=== PATIENT | male | born 1940 | race Asian ===

== ENCOUNTER 2017-08-16 14:04 | Inpatient (IN) | payer OTHER ==
[2017-08-16 14:33] LABS: ADD MAN DIFF? NO
[2017-08-16] MEDS: NITROGLYCERIN (SL) 0.4 MG TAB SL (14:34)
[2017-08-16] MEDS: FUROSEMIDE 40 MG INJ IV (14:34)
[2017-08-16 14:36] LABS: WHITE BLOOD COUNT 7.3 10^3/ul (4.8-10.8)
[2017-08-16 14:36] LABS: BASOPHIL # 0.1 10^3/ul (0.0-0.1); BASOPHILS % 1.4 % (0.0-2.0); EOSINOPHILS # 0.5 10^3/ul (0.0-0.5); EOSINOPHILS % 7.3 % (0.0-7.0); HEMATOCRIT 40.1 % (42.0-52.0); HEMOGLOBIN 13.4 g/dl (14.0-18.0); LYMPHOCYTES # 1.3 10^3/ul (0.8-2.9); LYMPHOCYTES % 18.1 % (15.0-51.0); MEAN CORPUSCULAR HEMOGLOBIN 28.6 pg (29.0-33.0); MEAN CORPUSCULAR HGB CONC 33.4 g/dl (32.0-37.0); MEAN CORPUSCULAR VOLUME 85.7 fl (82.0-101.0); MEAN PLATELET VOLUME 9.2 fl (7.4-10.4); MONOCYTE # 0.7 10^3/ul (0.3-0.9); MONOCYTES % 9.2 % (0.0-11.0); NEUTROPHIL # 4.6 10^3/ul (1.6-7.5); NEUTROPHILS % 63.6 % (39.0-77.0); PLATELET COUNT 337 10^3/UL (140-415); RED BLOOD COUNT 4.68 10^6/ul (4.70-6.10); RED CELL DISTRIBUTION WIDTH 13.1 % (11.5-14.5)
[2017-08-16] MEDS: ENALAPRILAT 1.25 MG INJ IV (14:38)
[2017-08-16 15:25] LABS: ALANINE AMINOTRANSFERASE 25 IU/L (13-69); ALBUMIN 4.3 g/dl (3.3-4.9); ALBUMIN/GLOBULIN RATIO 1.34; ALKALINE PHOSPHATASE 64 IU/L (42-121); ANION GAP 18 (8-16); ASPARTATE AMINO TRANSFERASE 21 IU/L (15-46); BILIRUBIN,INDIRECT 0.2 mg/dl (0-1.1); BILIRUBIN,TOTAL 0.2 mg/dl (0.2-1.3); BLOOD UREA NITROGEN 19 mg/dl (7-20); CARBON DIOXIDE 24 mmol/L (21-31); CHLORIDE 100 mmol/L (97-110); CREATININE 1.22 mg/dl (0.61-1.24); GLUCOSE 104 mg/dl (70-220); LIPASE 121 U/L (23-300); SODIUM 138 mmol/L (135-144); TOTAL PROTEIN 7.5 g/dl (6.1-8.1)
[2017-08-16 15:36] LABS: TROPONIN-I < 0.012 ng/ml (0.00-0.12)
[2017-08-16 16:24] LABS: INR 0.89; PROTIME 12.1 Sec (11.9-14.9); PT RATIO 0.9
[2017-08-16 16:25] LABS: PARTIAL THROMBOPLASTIN TIME 33.7 Sec (25.0-35.0)
[2017-08-16] MEDS ORDERED: ALBUTEROL/IPRATROPIUM (NEB) 3 ML AMP HHN (16:30)
[2017-08-16] MEDS ORDERED: ACETAMINOPHEN 325 MG TAB PO (16:30)
[2017-08-16] MEDS ORDERED: NACL 0.9% 3 ML SYG IV (16:30)
[2017-08-16] MEDS ORDERED: MAGNESIUM HYDROXIDE 30ML CUP PO (16:30)
[2017-08-16] MEDS ORDERED: DOCUSATE SODIUM 100 MG CAP PO (16:30)
[2017-08-16] MEDS ORDERED: NITROGLYCERIN (SL) 0.4 MG TAB SL (16:30)
[2017-08-16] MEDS ORDERED: hydrALAzine 20 MG INJ IV (16:30)
[2017-08-16] MEDS ORDERED: LORAZEPAM 2 MG INJ IV (16:30)
[2017-08-16] MEDS ORDERED: morphine 2 MG INJ IV (16:30)
[2017-08-16] MEDS ORDERED: ONDANSETRON 4 MG INJ IV (16:30)
[2017-08-16] MEDS ORDERED: NA PHOSPHATE/BIPHOS 133 ML ENEMA PR (16:30)
[2017-08-16] MEDS ORDERED: HYDROCODONE/APAP (5/325) TAB PO (16:30)
[2017-08-16 16:47] LABS: B-TYPE NATRIURETIC PEPTIDE 1700 PG/ML (0-125)
[2017-08-16 16:55] LABS: FREE T4 (FREE THYROXINE) 1.28 ng/dl (0.78-2.44)
[2017-08-16 17:56] LABS: CREATINE KINASE 84 IU/L (23-200)
[2017-08-16 18:05] LABS: CK INDEX 1.3; TROPONIN-I 0.021 ng/ml (0.00-0.12)
[2017-08-16] MEDS: FUROSEMIDE 20 MG INJ IV (19:08)
[2017-08-16] MEDS: ATORVASTATIN 80 MG TAB PO (21:38)
[2017-08-16] MEDS: DOCUSATE SODIUM 100 MG CAP PO (21:38)
[2017-08-16] MEDS: HEPARIN 5,000 UNIT/0.5 ML VIAL SC (21:56)
[2017-08-16] MEDS: DOXYCYCLINE 100 MG TAB PO (22:16)
[2017-08-16] MEDS: GEMFIBROZIL 600 MG TAB PO (22:16)
[2017-08-16 23:08] LABS: CREATINE KINASE 60 IU/L (23-200)
[2017-08-16 23:22] LABS: CK INDEX 1.9; CK-MB 1.16 ng/ml (0.0-2.4); TROPONIN-I 0.023 ng/ml (0.00-0.12)
[2017-08-17] MEDS: PANTOPRAZOLE (EC) 40 MG TAB PO (06:00)
[2017-08-17] MEDS: FUROSEMIDE 20 MG INJ IV ×2 (06:01→17:23)
[2017-08-17 08:41] LABS: ADD MAN DIFF? NO
[2017-08-17 08:44] LABS: ABNORMAL IP MESSAGE 1; BASOPHIL # 0.1 10^3/ul (0.0-0.1); BASOPHILS % 1.3 % (0.0-2.0); HEMATOCRIT 37.1 % (42.0-52.0); HEMOGLOBIN 12.5 g/dl (14.0-18.0); LYMPHOCYTES # 1.6 10^3/ul (0.8-2.9); LYMPHOCYTES % 26.5 % (15.0-51.0); MEAN CORPUSCULAR HEMOGLOBIN 29.1 pg (29.0-33.0); MEAN CORPUSCULAR HGB CONC 33.7 g/dl (32.0-37.0); MEAN CORPUSCULAR VOLUME 86.5 fl (82.0-101.0); MEAN PLATELET VOLUME 9.4 fl (7.4-10.4); MONOCYTE # 0.6 10^3/ul (0.3-0.9); MONOCYTES % 9.9 % (0.0-11.0); NEUTROPHIL # 2.8 10^3/ul (1.6-7.5); NEUTROPHILS % 46.4 % (39.0-77.0); PLATELET COUNT 284 10^3/UL (140-415); POSITIVE DIFF @See below; RED BLOOD COUNT 4.29 10^6/ul (4.70-6.10); RED CELL DISTRIBUTION WIDTH 13.3 % (11.5-14.5)
[2017-08-17 08:44] LABS: WHITE BLOOD COUNT 6.1 10^3/ul (4.8-10.8)
[2017-08-17] MEDS: HEPARIN 5,000 UNIT/0.5 ML VIAL SC ×2 (08:50→22:14)
[2017-08-17] MEDS: ASPIRIN (EC) 81 MG TAB PO (08:51)
[2017-08-17] MEDS: DOCUSATE SODIUM 100 MG CAP PO ×2 (08:51→22:04)
[2017-08-17] MEDS: GEMFIBROZIL 600 MG TAB PO ×2 (08:51→17:22)
[2017-08-17] MEDS: DOXYCYCLINE 100 MG TAB PO ×2 (08:51→22:05)
[2017-08-17 08:52] LABS: EOSINOPHILS % 15.6 % (0.0-7.0)
[2017-08-17 09:08] LABS: CHOL/HDL RATIO 3.5 RATIO; HDL CHOLESTEROL 44 mg/dl (31-75); LDL CHOLESTEROL,CALCULATED 75 mg/dl; TRIGLYCERIDES 178 mg/dl (0-149)
[2017-08-17 09:08] LABS: CHOLESTEROL 155 mg/dl (100-200)
[2017-08-17 09:11] LABS: ANION GAP 20 (8-16); BLOOD UREA NITROGEN 27 mg/dl (7-20); CALCIUM 8.9 mg/dl (8.4-10.2); CARBON DIOXIDE 26 mmol/L (21-31); CHLORIDE 101 mmol/L (97-110); CREATININE 1.68 mg/dl (0.61-1.24); GLUCOSE 104 mg/dl (70-220); MAGNESIUM 1.9 mg/dl (1.7-2.5); PHOSPHORUS 4.7 mg/dl (2.5-4.9); POTASSIUM 3.9 mmol/L (3.5-5.1); SODIUM 143 mmol/L (135-144)
[2017-08-17 09:38] LABS: THYROID STIMULATING HORMONE 0.925 MIU/L (0.465-4.680)
[2017-08-17 10:04] LABS: HEMOGLOBIN A1C 6.4 % (0-5.9)
[2017-08-17] MEDS: GUAIFENESIN 20 MG/ML 5ML CUP PO ×2 (15:46→22:05)
[2017-08-17] MEDS ORDERED: CEPASTAT LOZENGE MT (16:00)
[2017-08-17] MEDS: ATORVASTATIN 80 MG TAB PO (22:05)
[2017-08-18] MEDS: GUAIFENESIN 20 MG/ML 5ML CUP PO (06:38)
[2017-08-18] MEDS: PANTOPRAZOLE (EC) 40 MG TAB PO (06:38)
[2017-08-18] MEDS: FUROSEMIDE 20 MG INJ IV (06:40)
[2017-08-18 07:02] LABS: ADD MAN DIFF? NO
[2017-08-18 07:04] LABS: BASOPHIL # 0.1 10^3/ul (0.0-0.1); BASOPHILS % 1.2 % (0.0-2.0); EOSINOPHILS # 0.6 10^3/ul (0.0-0.5); EOSINOPHILS % 8.3 % (0.0-7.0); LYMPHOCYTES # 1.9 10^3/ul (0.8-2.9); LYMPHOCYTES % 28.6 % (15.0-51.0); MEAN CORPUSCULAR HEMOGLOBIN 28.3 pg (29.0-33.0); MEAN CORPUSCULAR HGB CONC 32.5 g/dl (32.0-37.0); MEAN CORPUSCULAR VOLUME 87.1 fl (82.0-101.0); MEAN PLATELET VOLUME 9.3 fl (7.4-10.4); MONOCYTE # 0.8 10^3/ul (0.3-0.9); MONOCYTES % 11.5 % (0.0-11.0); NEUTROPHIL # 3.4 10^3/ul (1.6-7.5); PLATELET COUNT 282 10^3/UL (140-415); RED BLOOD COUNT 4.59 10^6/ul (4.70-6.10); RED CELL DISTRIBUTION WIDTH 13.2 % (11.5-14.5)
[2017-08-18 07:04] LABS: WHITE BLOOD COUNT 6.7 10^3/ul (4.8-10.8)
[2017-08-18 07:20] LABS: ANION GAP 19 (8-16); BLOOD UREA NITROGEN 31 mg/dl (7-20); CARBON DIOXIDE 28 mmol/L (21-31); CHLORIDE 101 mmol/L (97-110); CREATININE 1.72 mg/dl (0.61-1.24); GLUCOSE 109 mg/dl (70-220); POTASSIUM 3.8 mmol/L (3.5-5.1); SODIUM 144 mmol/L (135-144)
[2017-08-18] MEDS: DOXYCYCLINE 100 MG TAB PO (09:02)
[2017-08-18] MEDS: DOCUSATE SODIUM 100 MG CAP PO (09:03)
[2017-08-18] MEDS: GEMFIBROZIL 600 MG TAB PO (09:03)
[2017-08-18] MEDS: ASPIRIN (EC) 81 MG TAB PO (09:03)
[2017-08-18] MEDS: HEPARIN 5,000 UNIT/0.5 ML VIAL SC (09:09)
== END 2017-08-18 15:15 | disposition home or self-care (01) | DRG 291 ==
LOC: MS4 20:25 → E/R 14:04 → MS4 15:55
PROVIDERS: Hospitalist
PROC: 5A09358 Assistance with Respiratory Ventilation, Less than 24 Consecutive Hours, Intermittent Positive Airway Pressure (ICD-10-PCS; principal; 2017-08-16)
DX: I11.0 Hypertensive heart disease with heart failure (principal); J96.01 Acute respiratory failure with hypoxia; I50.43 Acute on chronic combined systolic (congestive) and diastolic (congestive) heart failure; I16.0 Hypertensive urgency; I25.10 Atherosclerotic heart disease of native coronary artery without angina pectoris; R60.0 Localized edema; E78.00 Pure hypercholesterolemia, unspecified; Z95.1 Presence of aortocoronary bypass graft
CPT/HCPCS: 36415; 71045; 80048; 80053; 80061; 82550; 82553; 83036; 83690; 83735; 83880; 84100; 84439; 84443; 84484; 85025; 85610; 85730; 93005; 93306; 94660; 96374; 97161; 99291-25; J1940